=== PATIENT | female | born 1960 | race Two or more races ===

== ENCOUNTER 2021-03-06 13:56 | Outpatient (REF) | payer OTHER, SELFPAY | END 2021-03-06 13:57 | disposition home or self-care (01) | LOC: HO.LAB 13:56 | PROVIDERS: PCP Physician Assistant; Visit Provider Internal Medicine | DX: Z20.822 Contact with and (suspected) exposure to COVID-19 (principal) | CPT/HCPCS: C9803; U0003; U0005 ==